=== PATIENT | female | born 1945 | race Caucasian/White ===

== ENCOUNTER 2021-11-06 23:26 | Emergency (ER) | payer MEDICARE ==
[~2021-11-06 23:26] MED LIST: BACTROBAN OINT22 GM TOP; FERROUS GLUCON324 M1 PO; LOPRESSOR 25 MG25 MG PO; NORCO 5-325 TA1 EACH PO; SAM-E400 MG PO; VITAMIN B-121000 MCG PO; VITAMIN E200 UNI3 PO
[2021-11-07 00:26] LABS: HEMOGLOBIN 9.1 gm/dl (12.3-15.3); RED BLOOD COUNT 3.24 M/UL (4.00-5.10); WHITE BLOOD COUNT 8.7 K/UL (4.5-11.0)
== END 2021-11-07 03:15 | disposition home or self-care (01) ==
LOC: ER1 23:26
PROVIDERS: Physician Assistant
DX: R00.1 Bradycardia, unspecified (principal); R53.83 Other fatigue; I48.91 Unspecified atrial fibrillation; I50.9 Heart failure, unspecified; Z79.82 Long term (current) use of aspirin; Z79.01 Long term (current) use of anticoagulants; Z79.899 Other long term (current) drug therapy
CPT/HCPCS: 71045; 80053; 82550; 82553; 83874; 83880; 84439; 84443; 84484; 85025; 85610; 85730; 93005; 99284